=== PATIENT | male | born 1945 | race Caucasian/White ===

== ENCOUNTER 2021-03-25 13:11 | Outpatient (CLI) | payer OTHER, SELFPAY ==
--- NOTE | 2021-03-25 13:20 | MR_ITS ---
WS: [id number] MRI LUMBAR SPINE NONCONTRAST HISTORY: LUMBAR RADICULOPATHY COMPARISON: None available. TECHNIQUE: Sagittal and axial multisequence imaging is submitted. Mild narrowing of the central cervical canal at C5-6 and C6-7 from disc and osteophyte disease. Mild increase in the thoracic kyphosis. Very mild anterior wedging of T6. Normal lumbar alignment with no compression fractures or marrow edema. Mild disc desiccation throughout the lumbar spine. No severe disc space narrowing. Conus terminates normally at L1. L1-L2: Mild foraminal narrowing probably due to short pedicles. No disc disease. L2-L3: Very mild annular disc bulging with facet and ligamentum flavum disease. No high-grade stenosi s. Small amount of fluid in the facet joints. L3-L4: Mild annular disc bulging with ligamentum flavum and facet arthritis. Fluid in the facet joint s bilaterally. Small bilateral foraminal disc protrusions with mild foraminal stenosis. Very mild enc roachment upon the L3 and L4 nerve roots by disc disease. L4-L5: Very slight annular disc bulging with moderate ligamentum flavum disease and facet arthritis. Mild central stenosis with mild encroachment into the subarticular recesses. Very slight disc contact on the RIGHT L5 traversing nerve root. L5-S1: Broad-based disc bulging posteriorly. No contact on the S1 nerve roots. Very slight RIGHT fora mervat narrowing. Facet joint arthritis is moderate on the RIGHT and mild on the LEFT. Paravertebral soft tissue structures are negative. MR/MR lumbar spine wo con* [id number] IMPRESSION: 1. Multilevel areas of mild to moderate stenoses and facet arthritis as descri bed above. No high-grade stenosis. 2. Mild annular disc bulging with small bilateral foraminal disc protrusions a t L3-4 with minimal encroachment upon the L3 and L4 nerve roots. 3. Mild central stenosis with disc encroachment into the subarticular recesses . Mild disc contact upon the RIGHT L5 traversing nerve root. 4. Minimal RIGHT foraminal narrowing at L5-S1.
== END 2021-03-25 13:12 | disposition home or self-care (01) ==
PROVIDERS: Visit Provider Family Medicine
DX: M54.16 Radiculopathy, lumbar region (principal); M51.26 Other intervertebral disc displacement, lumbar region
CPT/HCPCS: 72148

== ENCOUNTER 2022-02-11 06:00 | Outpatient (RCR) | payer OTHER, SELFPAY | END 2022-03-13 23:59 | disposition home or self-care (01) | LOC: TPT 06:00 | PROVIDERS: Visit Provider Family Medicine | DX: R53.1 Weakness (principal) | CPT/HCPCS: 97163 ==

== ENCOUNTER 2022-03-14 06:00 | Outpatient (RCR) | payer OTHER, SELFPAY | END 2022-04-06 23:59 | disposition home or self-care (01) | LOC: TPT 06:00 | PROVIDERS: Visit Provider Family Medicine | DX: R53.1 Weakness (principal) | CPT/HCPCS: 97110 ==

== ENCOUNTER → 2022-12-22 09:21 | Outpatient (BNVA) | payer OTHER, SELFPAY | PROVIDERS: PCP Family Medicine; Visit Provider Internal Medicine Cardiovascular Disease | DX: R07.9 Chest pain, unspecified (principal); I10 Essential (primary) hypertension; R73.03 Prediabetes; I67.9 Cerebrovascular disease, unspecified; J44.9 Chronic obstructive pulmonary disease, unspecified | CPT/HCPCS: 93005; 99204 ==

== ENCOUNTER 2023-01-04 08:41 | Outpatient (CLI) | payer OTHER, SELFPAY ==
--- NOTE | 2023-01-04 09:15 | USCV_ITS ---
Thad Franklin Age: 77 Gender: M : 1945 Exam Date: 01/04/2023 08:56 Ordering Phys: Hollie Serrano MD ([email or web address]) Technologist: Exam Location: [facility] [place] Indication: chest pain BP: 140 / 90 HR: 59 Rhythm: Sinus Technical Quality: Adequate MEASUREMENTS (Male / Female) Normal Values 2D ECHO LVOT Diameter 2.2 cm LV Ejection Fraction MOD 2C 71.7 % LV Ejection Fraction 2C AL 72.0 % LA Diameter 4.3 cm IVC Diameter 3.0 cm M-MODE Aortic Annulus Diameter 4.4 cm LA Ao Ratio MM 0.9 MV E Point Septal Separation 2.1 cm DOPPLER AV Peak Velocity 104.0 cm/s LVOT Peak Velocity 112.0 cm/s AV Area Cont Eq vti 3.7 cm squared AV Area Cont Eq pk 4.0 cm squared MV Area PHT 2.2 cm squared Mitral E to A Ratio 0.7 MV E' Velocity 28.0 cm/s Mitral E to MV E' Ratio 8.8 Mitral E to LV E' Lateral Ratio 7.4 Mitral E to LV E' Septal Ratio 10.7 TR Peak Velocity 183.3 cm/s TR Peak Gradient 13.4 mmHg TV Peak E Velocity 79.0 cm/s Right Atrial Pressure 3.0 mmHg Pulmonary Artery Systolic Pressu 16.4 mmHg RV Acceleration Time 0.1 s FINDINGS Left Ventricle Normal left ventricular size, systolic function and wall thickness, with no regional wall motion abnormalities. Left ventricular ejection fraction is estimated at 65 %. Grade I diastolic dysfunction (abnormal relaxation filling pattern), normal to mildly elevated filling pressures. Right Ventricle Normal right ventricular size and systolic function. Right ventricular systolic pressure 23 mmHg. Right Atrium Normal right atrial size. Left Atrium Mildly increased left atrial size. Mitral Valve Structurally normal mitral valve. Chordal ERNESTINA noted. No mitral valve stenosis. Mild to moderate mitral valve regurgitation. Aortic Valve Structurally normal trileaflet aortic valve. No aortic valve stenosis. No aortic valve regurgitation. Tricuspid Valve Structurally normal tricuspid valve. No tricuspid valve stenosis. Trace to mild tricuspid valve regurgitation. Pulmonic Valve Pulmonic valve not well visualized. Pericardium No pericardial effusion. Aorta Mildly dilated aortic root and normal proximal ascending aorta. IVC Normal inferior vena cava. CONCLUSIONS 1. Normal left ventricular size, systolic function and wall thickness, with no regional wall motion abnormalities. Left ventricular ejection fraction is estimated at 65 %. Grade I diastolic dysfunction (abnormal relaxation filling pattern), normal to mildly elevated filling pressures. 2. Mild to moderate mitral valve regurgitation. 3. Normal pulmonary artery pressure. 4. No prior similar studies to compare. Hollie Serrano MD (Electronically Signed) Final Date: 08 January 2023 16:26 S
== END 2023-01-04 08:42 | disposition home or self-care (01) ==
LOC: RAD 08:41
PROVIDERS: PCP Family Medicine; Visit Provider Internal Medicine Cardiovascular Disease
DX: R07.9 Chest pain, unspecified (principal); I51.89 Other ill-defined heart diseases; I34.0 Nonrheumatic mitral (valve) insufficiency
CPT/HCPCS: 93005; 93306

== ENCOUNTER → 2023-02-16 11:44 | Outpatient (BNVA) | payer OTHER, SELFPAY | PROVIDERS: PCP Family Medicine; Visit Provider Internal Medicine Cardiovascular Disease | DX: R07.9 Chest pain, unspecified (principal); I10 Essential (primary) hypertension | CPT/HCPCS: 99214 ==